=== PATIENT | female | born 1980 | race Caucasian/White ===

== ENCOUNTER 2018-12-23 12:35 | Emergency (ER) | payer OTHER ==
[~2018-12-23] VITALS: Ht 160 cm; Wt 77.1 kg
[2018-12-23] MEDS ORDERED: NACL 0.9% 1,000 ML IV ONE (12:48)
[2018-12-23 13:15] VITALS: BP_SYST 133
[2018-12-23 14:03] LABS: CALCIUM 8.8 mg/dL (8.4-11.0); CREATININE 0.82 mg/dL (0.55-1.30); POTASSIUM 3.4 mmol/L (3.5-5.1)
[2018-12-23 14:05] LABS: HEMATOCRIT 41.4 % (36-48); HEMOGLOBIN 13.3 g/dL (12.0-16.0); MEAN CORPUSCULAR HEMOGLOBIN 26 pg (27-31); MEAN CORPUSCULAR HGB CONC 32 % (32-36); MEAN CORPUSCULAR VOLUME 81 fL (79.0-98.0); RED BLOOD CELL COUNT(AUTO) 5.16 MIL/uL (4.2-6.2); RED CELL DISTRIBUTION WIDTH 15.5 % (9.0-15.0); WHITE BLOOD COUNT (AUTO) 8.2 K/uL (4.8-10.8)
[2018-12-23 14:06] LABS: BASOPHILS % (AUTO) 0.5 % (0.0-2.0); EOSINOPHILS # (AUTO) 0.2 K/uL (0.0-0.4); EOSINOPHILS % (AUTO) 2.5 % (0.0-4.0); LYMPHOCYTES # (AUTO) 0.9 K/uL (1.0-5.5); LYMPHOCYTES % (AUTO) 11.2 % (20.5-51.5); MONOCYTES # (AUTO) 0.7 K/uL (0.0-1.0); NEUTROPHILS # (AUTO) 6.3 K/uL (1.8-7.7); NEUTROPHILS % (AUTO) 77.8 % (40.0-70.0); PLATELET COUNT (AUTO) 358 K/uL (130-430)
[2018-12-23 14:09] LABS: ALBUMIN 3.3 g/dL (3.4-4.8); TOTAL BILIRUBIN 0.2 mg/dL (0.0-1.0)
[2018-12-23] MEDS ORDERED: KETOROLAC TROMETHAMINE 30 MG VIAL IVP ONE (14:15)
[2018-12-23] MEDS ORDERED: DIPHENHYDRAMINE INJ 50 MG/ML VIAL IVP ONE (14:15)
[2018-12-23 14:24] LABS: BILIRUBIN,URINE NEGATIVE (NEGATIVE); BLOOD, URINE 1+ (NEGATIVE); CLARITY/URINE SL HAZY (CLEAR); COLOR,URINE YELLOW (YELLOW); GLUCOSE,URINE NEGATIVE (NEGATIVE); KETONES,URINE NEGATIVE (NEGATIVE); LEUKOCYTE ESTERASE ,URINE 1+ (NEGATIVE); NITRITE, URINE NEGATIVE (NEGATIVE); PROTEIN URINE NEGATIVE (NEGATIVE); UROBILINOGEN,URINE 0.2 (0.2-1.0)
[2018-12-23 14:50] LABS: BACTERIA,URINE FEW /HPF (None Seen)
[2018-12-23 15:20] VITALS: BP_SYST 138
== END 2018-12-23 15:20 | disposition home or self-care (01) ==
LOC: SED 12:35
DX: J11.1 Influenza due to unidentified influenza virus with other respiratory manifestations (principal); R05 Cough; N39.0 Urinary tract infection, site not specified; M79.10 Myalgia, unspecified site; R03.0 Elevated blood-pressure reading, without diagnosis of hypertension; Z88.8 Allergy status to other drugs, medicaments and biological substances
CPT/HCPCS: 36415; 80053; 81000; 83690; 85025; 86710; 87086; 96374; 96375; 99283; J1200; J1885; J7030

== ENCOUNTER 2020-08-06 14:32 | Emergency (ER) | payer OTHER ==
[~2020-08-06] VITALS: Ht 160 cm; Wt 77.1 kg
[2020-08-06 14:50] VITALS: BP_SYST 156
[2020-08-06 16:31] LABS: BASOPHILS # (AUTO) 0.1 K/uL (0.0-0.2); BASOPHILS % (AUTO) 0.5 % (0.0-2.0); EOSINOPHILS # (AUTO) 0.2 K/uL (0.0-0.4); EOSINOPHILS % (AUTO) 0.9 % (0.0-4.0); HEMOGLOBIN 13.1 g/dL (12.0-16.0); LYMPHOCYTES % (AUTO) 17.5 % (20.5-51.5); MEAN CORPUSCULAR HEMOGLOBIN 26 pg (27-31); MEAN CORPUSCULAR HGB CONC 32 % (32-36); MEAN CORPUSCULAR VOLUME 82 fL (79.0-98.0); MONOCYTES # (AUTO) 0.7 K/uL (0.0-1.0); MONOCYTES % (AUTO) 4.2 % (1.7-9.3); NEUTROPHILS # (AUTO) 13.3 K/uL (1.8-7.7); NEUTROPHILS % (AUTO) 76.9 % (40.0-70.0); PLATELET COUNT (AUTO) 350 K/uL (130-430); RED BLOOD CELL COUNT(AUTO) 4.98 MIL/uL (4.2-6.2); WHITE BLOOD COUNT (AUTO) 17.2 K/uL (4.8-10.8)
[2020-08-06 16:50] LABS: CALCIUM 8.6 mg/dL (8.4-11.0); CREATININE 0.73 mg/dL (0.55-1.30); POTASSIUM 4.5 mmol/L (3.5-5.1)
[2020-08-06 16:56] LABS: TOTAL BILIRUBIN 0.5 mg/dL (0.0-1.0)
[2020-08-06] MEDS ORDERED: MORPHINE 4 MG/ML INJ. SYRINGE IVP ONE (17:00)
[2020-08-06] MEDS ORDERED: ONDANSETRON HCL 4 MG/2 ML VIAL IVP ONE (17:00)
[2020-08-06 17:21] LABS: ALBUMIN 3.9 g/dL (3.4-4.8)
[2020-08-06] MEDS ORDERED: [UNRECOGNIZED DRUG - CODE] PO (18:14)
[2020-08-06 20:26] VITALS: BP_SYST 126
== END 2020-08-06 20:26 | disposition home or self-care (01) ==
LOC: SED 14:32
DX: O20.9 Hemorrhage in early pregnancy, unspecified (principal); Z3A.01 Less than 8 weeks gestation of pregnancy; Z90.49 Acquired absence of other specified parts of digestive tract; Z20.828 Contact with and (suspected) exposure to other viral communicable diseases
CPT/HCPCS: 36415; 76830; 76857; 80053; 81002; 81025; 85025; 86886; 86900; 86901; 87426; 96374; 96375; 99284; J2270; J2405; 76856-TC

== ENCOUNTER 2020-08-13 06:57 | Inpatient (IN) | payer OTHER ==
[~2020-08-13] VITALS: Ht 160 cm; Wt 72.6 kg
[~2020-08-13 06:57] MED LIST: [UNRECOGNIZED DRUG - CODE] PO
[2020-08-13 08:02] LABS: HCG,QUAL RESULT NEGATIVE (NEGATIVE)
[2020-08-13] MEDS ORDERED: CEFAZOLIN SOD 2 GM in D5W 50 ML IV ONE (08:15)
[2020-08-13] MEDS ORDERED: NS 1000 ML IV.SOLN IV ONE (11:02)
[2020-08-13] MEDS ORDERED: SUGAMMADEX SODIUM 200 MG/2 ML VIAL IV ONE (11:02)
[2020-08-13] MEDS ORDERED: WATER FOR IRRIGATION,STERILE 1,000 ML IRRIG.SOLN IR ONE (11:02)
[2020-08-13] MEDS ORDERED: NS IRRIG SOLN 1000 ML IR ONE (11:02)
[2020-08-13] MEDS ORDERED: fentaNYL CITRATE/PF 100 MCG/2 ML AMP IVP ONE (11:02)
[2020-08-13] MEDS ORDERED: HYDROmorphone 2 MG/ML VIAL IVP ONE (11:02)
[2020-08-13] MEDS ORDERED: ONDANSETRON HCL 4 MG/2 ML VIAL IVP ONE (11:02)
[2020-08-13] MEDS ORDERED: LABETALOL 100 MG/ 20ML VIAL IVP ONE (11:02)
[2020-08-13] MEDS ORDERED: PROPOFOL 200MG/ 20ML VIAL (DIPRIVAN) IV ONE (11:02)
[2020-08-13] MEDS ORDERED: ROCURONIUM BROMIDE 10 MG/ML (ZEMURON) IV ONE (11:02)
[2020-08-13] MEDS ORDERED: LR 1,000 ML IV.SOLN IV ONE (11:02)
[2020-08-13] MEDS ORDERED: DEXAMETHASONE SOD PHOSPHATE 4 MG/ML VIAL IVP ONE (11:02)
[2020-08-13] MEDS ORDERED: KETOROLAC TROMETHAMINE 30 MG VIAL IVP ONE (11:02)
[2020-08-13] MEDS ORDERED: SUCCINYLCHOLINE CHLORIDE 20 MG/ML(QUELICIN) IVP ONE (11:02)
[2020-08-13] MEDS ORDERED: OXYCODONE/ACETAMINOPHEN 5-325 TABLET PO PRN (13:00)
[2020-08-13] MEDS ORDERED: HYDROcodone/ACETAMIN 5-325 MG TAB (NORCO/ VICODIN) PO PRN (13:00)
[2020-08-13] MEDS ORDERED: NALOXONE HCL 0.4 MG/ML AMP (NARCAN) IVP PRN ×3 (13:00→13:30)
[2020-08-13] MEDS: HYDROmorphone 1 MG INJ. 1 MG/ML AMPUL IVP PRN ×4 (13:28→14:10)
[2020-08-13] MEDS ORDERED: ONDANSETRON HCL 4 MG/2 ML VIAL IVP PRN (13:30)
[2020-08-13] MEDS ORDERED: METOCLOPRAMIDE HCL 10 MG/2 ML VIAL IVP PRN (13:30)
[2020-08-13] MEDS ORDERED: HYDROmorphone 1 MG INJ. 1 MG/ML AMPUL ONE ×2 (13:47→14:11)
[2020-08-13] MEDS ORDERED: ONDANSETRON HCL 4 MG/2 ML VIAL ONE (14:16)
[2020-08-13] MEDS: OXYCODONE/ACETAMINOPHEN 5-325 TABLET PO PRN (15:03)
[2020-08-13 16:00] VITALS: BP_SYST 124
[2020-08-13] MEDS: DIPHENHYDRAMINE INJ 50 MG/ML VIAL IVP PRN ×2 (16:29→20:23)
[2020-08-13] MEDS: KETOROLAC TROMETHAMINE 30 MG VIAL IVP SCH ×2 (18:01→23:32)
[2020-08-13 20:00] VITALS: BP_SYST 115
[2020-08-13] MEDS ORDERED: HYDROmorphone 2 MG/ML VIAL IVP PRN (20:00)
[2020-08-13] MEDS: ONDANSETRON HCL 4 MG/2 ML VIAL IVP PRN (20:23)
[2020-08-14 00:53] VITALS: BP_SYST 109
[2020-08-14] MEDS: ONDANSETRON HCL 4 MG/2 ML VIAL IVP PRN ×2 (01:53→11:11)
[2020-08-14] MEDS: MEPERIDINE HCL/PF 100 MG/ML AMP IM PRN ×4 (01:54→21:10)
[2020-08-14] MEDS: KETOROLAC TROMETHAMINE 30 MG VIAL IVP SCH ×3 (06:37→18:02)
[2020-08-14 08:00] VITALS: BP_SYST 122
[2020-08-14 11:49] VITALS: BP_SYST 120
[2020-08-14 14:53] VITALS: BP_SYST 122
[2020-08-14 16:00] VITALS: BP_SYST 132
[2020-08-14 20:00] VITALS: BP_SYST 128
[2020-08-14] MEDS: DIPHENHYDRAMINE INJ 50 MG/ML VIAL IVP PRN (22:16)
[2020-08-15 00:31] VITALS: BP_SYST 127
[2020-08-15] MEDS: OXYCODONE/ACETAMINOPHEN 5-325 TABLET PO PRN ×2 (03:38→09:06)
[2020-08-15] MEDS: KETOROLAC TROMETHAMINE 30 MG VIAL IVP SCH ×2 (05:48)
[2020-08-15 12:21] VITALS: BP_SYST 137
[2020-08-15 15:22] VITALS: BP_SYST 137
[2020-08-15 16:22] VITALS: BP_SYST 131
== END 2020-08-15 16:30 | disposition home or self-care (01) | DRG 743 ==
LOC: SMU 06:57 → EDSTATUS 08:30 → SMU 13:12
PROVIDERS: ADMIT Specialist; ATTEND Specialist
PROC: 0UT74ZZ Resection of Bilateral Fallopian Tubes, Percutaneous Endoscopic Approach (ICD-10-PCS; 2020-08-13)
PROC: 3E0T3BZ Introduction of Anesthetic Agent into Peripheral Nerves and Plexi, Percutaneous Approach (ICD-10-PCS; 2020-08-13)
PROC: 0UT94ZL Resection of Uterus, Supracervical, Percutaneous Endoscopic Approach (ICD-10-PCS; principal; 2020-08-13 11:02)
DX: N80.9 Endometriosis, unspecified (principal); N93.8 Other specified abnormal uterine and vaginal bleeding; M79.7 Fibromyalgia; N73.6 Female pelvic peritoneal adhesions (postinfective); N80.0 Endometriosis of uterus; Z90.710 Acquired absence of both cervix and uterus; G89.18 Other acute postprocedural pain
CPT/HCPCS: 84703; 87081; 88307; C1727; C9399; E0190; J0330; J0690; J1100; J1170; J1200; J1885; J2175; J2405; J2704; J2765; J3010; J3490; J7030; J7060; J7120

== ENCOUNTER 2024-05-16 06:08 | Inpatient (IN) | payer OTHER ==
[~2024-05-16] VITALS: Ht 160 cm; Wt 72.6 kg
[~2024-05-16 06:08] MED LIST changes: +AMOX-423 PO; +CYCL10TA24 PO; +HYDR-3927 PO; +KETO10TA2 PO; +METO-290 PO; -[UNRECOGNIZED DRUG - CODE] PO
[2024-05-16] MEDS ORDERED: MIDAZOLAM HCL 2 MG/2 ML VIAL (VERSED) ONE (08:05)
[2024-05-16] MEDS ORDERED: GLYCOPYRROLATE 0.2 MG/ML VIAL ONE (08:05)
[2024-05-16] MEDS ORDERED: PHENYLEPHRINE HCL 10 MG/ML VIAL (NEOSYNEPHRINE) ONE (08:05)
[2024-05-16] MEDS ORDERED: ONDANSETRON HCL 4 MG/2 ML VIAL ONE (08:05)
[2024-05-16] MEDS ORDERED: ROCURONIUM BROMIDE 10 MG/ML (ZEMURON) ONE (08:05)
[2024-05-16] MEDS ORDERED: DEXTROSE 50% JECT 50 ML DISP.SYRIN ONE (08:05)
[2024-05-16] MEDS ORDERED: LR 1,000 ML IV.SOLN IV ONE (08:05)
[2024-05-16] MEDS ORDERED: ePHEDrine sulfate 50 MG/ML VIAL ONE (08:05)
[2024-05-16] MEDS ORDERED: CLINDAMYCIN 2% VAGINAL CREAM VG ONE (08:05)
[2024-05-16] MEDS ORDERED: fentaNYL CITRATE/PF 100 MCG/2 ML AMP ONE (08:05)
[2024-05-16] MEDS ORDERED: MORPHINE SULFATE 10MG/10ML PF AMP ONE (08:05)
[2024-05-16] MEDS ORDERED: PROPOFOL 200MG/ 20ML VIAL (DIPRIVAN) IV ONE (08:05)
[2024-05-16] MEDS ORDERED: SEVOFLURANE 15 MIN GAS INH ONE (08:05)
[2024-05-16] MEDS ORDERED: FUROSEMIDE 40 MG/4 ML VIAL ONE (08:05)
[2024-05-16] MEDS ORDERED: LIDOCAINE/EPI 1% 1:100000 20 ML VIAL ONE (08:05)
[2024-05-16] MEDS ORDERED: METOCLOPRAMIDE HCL 10 MG/2 ML VIAL ONE (08:05)
[2024-05-16] MEDS ORDERED: KETOROLAC TROMETHAMINE 60 MG/2 ML VIAL IM PRN (09:15)
[2024-05-16] MEDS ORDERED: NALOXONE HCL 0.4 MG/ML AMP (NARCAN) IVP PRN (09:15)
[2024-05-16] MEDS: ONDANSETRON HCL 4 MG/2 ML VIAL ONE (12:39)
[2024-05-16] MEDS: DEXAMETHASONE SOD PHOSPHATE 4 MG/ML VIAL ONE (12:55)
[2024-05-16] MEDS: ALBUMIN HUMAN 5% 250 ML IV ONE ×2 (14:04→14:15)
[2024-05-16 14:57] LABS: HEMATOCRIT 25.1 % (36-48); HEMOGLOBIN 7.9 g/dL (12.0-16.0)
[2024-05-16 17:20] VITALS: BP_SYST 104; PULSE 110; RESP 16; TEMP 97.3; O2SAT 96
[2024-05-16] MEDS: CEFAZOLIN SOD 2 GM in D5W 50 ML IV ONE (19:00)
[2024-05-16] MEDS: ACETAMINOPHEN I.V. 1000 MG 100 ML IV ONE (19:00)
[2024-05-16] MEDS: KETOROLAC TROMETHAMINE 30 MG VIAL ONE (19:00)
[2024-05-16] MEDS: ONDANSETRON HCL 4 MG/2 ML VIAL IVP PRN (19:07)
[2024-05-16 20:40] VITALS: BP_SYST 99; PULSE 107; RESP 18; TEMP 98.6; O2SAT 96
[2024-05-16] MEDS: DIPHENHYDRAMINE INJ 50 MG/ML VIAL IM PRN (21:14)
[2024-05-16] MEDS ORDERED: HYDROcodone/ACETAMIN 5-325 MG TAB (NORCO/ VICODIN) PO PRN (22:00)
[2024-05-16] MEDS: SIMETHICONE 80 MG TAB.CHEW PO SCH (22:19)
[2024-05-16] MEDS: METOCLOPRAMIDE HCL 10 MG/2 ML VIAL IVP PRN (22:26)
[2024-05-16] MEDS: HYDROmorphone 1 MG/ML INJ. CARTRIDGE IVP PRN (22:28)
[2024-05-16] MEDS: D5LR 1,000 ML IV SCH (22:47)
[2024-05-16] MEDS: CEFAZOLIN 1 GM IVPB PREMIX 100 ML IV ONE (22:50)
[2024-05-16] MEDS: ceFAZolin SODIUM 1 GM in D5W 50 ML IV SCH (22:53)
[2024-05-17] VITALS: BP_SYST 114; PULSE 112; RESP 18; TEMP 98.3; O2SAT 96
[2024-05-17 01:38] LABS: BASOPHILS # (AUTO) 0.1 K/uL (0.0-0.2); BASOPHILS % (AUTO) 0.3 % (0.0-2.0); EOSINOPHILS % (AUTO) 0.1 % (0.0-4.0); HEMOGLOBIN 10.2 g/dL (12.0-16.0); LYMPHOCYTES # (AUTO) 1.7 K/uL (1.0-5.5); LYMPHOCYTES % (AUTO) 7.9 % (20.5-51.5); MEAN CORPUSCULAR HEMOGLOBIN 28 pg (27-31); MEAN CORPUSCULAR HGB CONC 34 % (32-36); MEAN CORPUSCULAR VOLUME 83 fL (79.0-98.0); MONOCYTES % (AUTO) 4.5 % (1.7-9.3); NEUTROPHILS # (AUTO) 18.5 K/uL (1.8-7.7); NEUTROPHILS % (AUTO) 87.2 % (40.0-70.0); PLATELET COUNT (AUTO) 176 K/uL (130-430); RED BLOOD CELL COUNT(AUTO) 3.62 MIL/uL (4.2-6.2); RED CELL DISTRIBUTION WIDTH 15.9 % (9.0-15.0); WHITE BLOOD COUNT (AUTO) 21.2 K/uL (4.8-10.8)
[2024-05-17 02:48] LABS: PROTHROMBIN TIME 10.5 SECS (9.5-12.5)
[2024-05-17 08:00] VITALS: BP_SYST 118; PULSE 99; RESP 18; TEMP 98; O2SAT 100
[2024-05-17 08:05] LABS: BASOPHILS % (AUTO) 0.1 % (0.0-2.0); EOSINOPHILS % (AUTO) 0.2 % (0.0-4.0); HEMATOCRIT 30.4 % (36-48); HEMOGLOBIN 9.8 g/dL (12.0-16.0); LYMPHOCYTES # (AUTO) 3.2 K/uL (1.0-5.5); LYMPHOCYTES % (AUTO) 15.6 % (20.5-51.5); MEAN CORPUSCULAR HEMOGLOBIN 27 pg (27-31); MEAN CORPUSCULAR HGB CONC 32 % (32-36); MEAN CORPUSCULAR VOLUME 85 fL (79.0-98.0); MONOCYTES # (AUTO) 1.3 K/uL (0.0-1.0); MONOCYTES % (AUTO) 6.4 % (1.7-9.3); NEUTROPHILS # (AUTO) 15.9 K/uL (1.8-7.7); NEUTROPHILS % (AUTO) 77.7 % (40.0-70.0); PLATELET COUNT (AUTO) 245 K/uL (130-430); WHITE BLOOD COUNT (AUTO) 20.5 K/uL (4.8-10.8)
[2024-05-17 09:31] VITALS: O2SAT 97
[2024-05-17] MEDS: DIPHENHYDRAMINE INJ 50 MG/ML VIAL IVP PRN (11:13)
[2024-05-17 12:33] VITALS: BP_SYST 118; PULSE 100; RESP 18; TEMP 98.3; O2SAT 100
[2024-05-17 17:08] VITALS: BP_SYST 125; PULSE 102; RESP 18; TEMP 98.1; O2SAT 96
[2024-05-17 19:14] LABS: BASOPHILS # (AUTO) 0.1 K/uL (0.0-0.2); BASOPHILS % (AUTO) 0.4 % (0.0-2.0); EOSINOPHILS # (AUTO) 0.1 K/uL (0.0-0.4); EOSINOPHILS % (AUTO) 0.5 % (0.0-4.0); HEMATOCRIT 29.7 % (36-48); HEMOGLOBIN 9.8 g/dL (12.0-16.0); LYMPHOCYTES # (AUTO) 5.8 K/uL (1.0-5.5); LYMPHOCYTES % (AUTO) 27.7 % (20.5-51.5); MEAN CORPUSCULAR HEMOGLOBIN 28 pg (27-31); MEAN CORPUSCULAR HGB CONC 33 % (32-36); MEAN CORPUSCULAR VOLUME 85 fL (79.0-98.0); MONOCYTES # (AUTO) 1.4 K/uL (0.0-1.0); MONOCYTES % (AUTO) 6.5 % (1.7-9.3); NEUTROPHILS # (AUTO) 13.6 K/uL (1.8-7.7); NEUTROPHILS % (AUTO) 64.9 % (40.0-70.0); PLATELET COUNT (AUTO) 231 K/uL (130-430); RED BLOOD CELL COUNT(AUTO) 3.48 MIL/uL (4.2-6.2); RED CELL DISTRIBUTION WIDTH 15.9 % (9.0-15.0); WHITE BLOOD COUNT (AUTO) 20.9 K/uL (4.8-10.8)
[2024-05-17 20:00] VITALS: BP_SYST 145; PULSE 104; RESP 18; TEMP 98.3; O2SAT 96
[2024-05-17 23:46] LABS: PROTHROMBIN TIME 10.3 SECS (9.5-12.5)
[2024-05-18] VITALS: BP_SYST 142; PULSE 108; RESP 18; TEMP 98.3; O2SAT 94
[2024-05-18 08:00] VITALS: BP_SYST 138; PULSE 110; RESP 16; TEMP 98.2; O2SAT 96; O2SAT 98
[2024-05-18] MEDS ORDERED: HYDROcodone/ACETAMIN 10-325 MG TAB PO PRN (12:00)
[2024-05-18] MEDS ORDERED: NALOXONE HCL 0.4 MG/ML AMP (NARCAN) IVP PRN (12:00)
[2024-05-18] MEDS ORDERED: KETOROLAC TROMETHAMINE 10 MG TABLET (TORADOL) PO SCH (12:00)
[2024-05-18 12:12] VITALS: BP_SYST 136; PULSE 102; RESP 18; TEMP 98.7; O2SAT 95
[2024-05-18] MEDS ORDERED: FIORCET PO PRN (12:45)
[2024-05-18] MEDS ORDERED: METOCLOPRAMIDE HCL 10 MG TABLET PO SCH (13:00)
[2024-05-18] MEDS: ACETAMINOPHEN 325 MG TABLET PO PRN (13:12)
[2024-05-18] MEDS: ONDANSETRON HCL 4 MG/2 ML VIAL IVP PRN (13:12)
[2024-05-18] MEDS: NAPROXEN 250 MG TABLET PO PRN (13:13)
[2024-05-18] MEDS: PIPERACILLIN/TAZO 3.375 GM in D5W 50 ML IV SCH (14:13)
[2024-05-18 16:10] VITALS: BP_SYST 144; PULSE 105; RESP 17; TEMP 98.9; O2SAT 94
[2024-05-18 19:35] LABS: BASOPHILS # (AUTO) 0.2 K/uL (0.0-0.2); BASOPHILS % (AUTO) 0.9 % (0.0-2.0); EOSINOPHILS # (AUTO) 0.3 K/uL (0.0-0.4); EOSINOPHILS % (AUTO) 1.5 % (0.0-4.0); HEMATOCRIT 29.9 % (36-48); HEMOGLOBIN 9.9 g/dL (12.0-16.0); LYMPHOCYTES # (AUTO) 4.6 K/uL (1.0-5.5); LYMPHOCYTES % (AUTO) 24.3 % (20.5-51.5); MEAN CORPUSCULAR HEMOGLOBIN 28 pg (27-31); MEAN CORPUSCULAR HGB CONC 33 % (32-36); MEAN CORPUSCULAR VOLUME 84 fL (79.0-98.0); MONOCYTES # (AUTO) 0.8 K/uL (0.0-1.0); MONOCYTES % (AUTO) 4.4 % (1.7-9.3); NEUTROPHILS # (AUTO) 13.2 K/uL (1.8-7.7); NEUTROPHILS % (AUTO) 68.9 % (40.0-70.0); PLATELET COUNT (AUTO) 253 K/uL (130-430); RED BLOOD CELL COUNT(AUTO) 3.55 MIL/uL (4.2-6.2); RED CELL DISTRIBUTION WIDTH 15.9 % (9.0-15.0); WHITE BLOOD COUNT (AUTO) 19.1 K/uL (4.8-10.8)
[2024-05-18 20:15] VITALS: BP_SYST 147; PULSE 107; RESP 27; TEMP 98.8; O2SAT 96
[2024-05-18 21:00] VITALS: O2SAT 97
[2024-05-18] MEDS ORDERED: CYCLOBENZAPRINE HCL 10 MG TABLET (FLEXERIL) PO SCH (21:00)
[2024-05-19 00:15] VITALS: BP_SYST 139; PULSE 103; RESP 20; TEMP 98.4; O2SAT 98
[2024-05-19] MEDS: OXYCODONE/ACETAMINOPHEN *10*mg/325 mg TABLET PO PRN (01:58)
[2024-05-19 10:30] VITALS: O2SAT 100
[2024-05-19 13:02] VITALS: BP_SYST 138; PULSE 76; RESP 16; TEMP 98.6; O2SAT 98
[2024-05-19 13:41] VITALS: BP_SYST 138; PULSE 76; RESP 16; TEMP 98.6; O2SAT 98
[2024-05-20] MEDS ORDERED: CLEVAG VG (12:29)
[2024-05-20] MEDS ORDERED: AMOX-423 PO (12:31)
[2024-05-21 07:06] LABS: RA LATEX TURBID <10.0 IU/mL (<14.0)
[2024-05-22 02:06] LABS: EBV AB VCA, IgG 37.9 U/mL (0.0-17.9); EBV AB VCA, IgM <36.0 U/mL (0.0-35.9)
== END 2024-05-19 14:00 | disposition home or self-care (01) | DRG 742 ==
LOC: SMU 06:08 → SDS 06:08 → STU 23:03 → SDS 23:12 → STU 23:18
PROVIDERS: ADMIT Specialist; ATTEND Specialist
PROC: 02H633Z Insertion of Infusion Device into Right Atrium, Percutaneous Approach (ICD-10-PCS; 2024-05-16)
PROC: 0DNW4ZZ Release Peritoneum, Percutaneous Endoscopic Approach (ICD-10-PCS; 2024-05-16)
PROC: 0TJB8ZZ Inspection of Bladder, Via Natural or Artificial Opening Endoscopic (ICD-10-PCS; 2024-05-16)
PROC: 30233N1 Transfusion of Nonautologous Red Blood Cells into Peripheral Vein, Percutaneous Approach (ICD-10-PCS; principal; 2024-05-16 08:15)
PROC: 0UT04ZZ Resection of Right Ovary, Percutaneous Endoscopic Approach (ICD-10-PCS; 2024-05-17)
PROC: 0UTC4ZZ Resection of Cervix, Percutaneous Endoscopic Approach (ICD-10-PCS; 2024-05-17)
PROC: 0TQB4ZZ Repair Bladder, Percutaneous Endoscopic Approach (ICD-10-PCS; 2024-05-17)
PROC: 8E0W4CZ Robotic Assisted Procedure of Trunk Region, Percutaneous Endoscopic Approach (ICD-10-PCS; 2024-05-17)
DX: N80.9 Endometriosis, unspecified (principal); D68.9 Coagulation defect, unspecified; M79.7 Fibromyalgia; N93.9 Abnormal uterine and vaginal bleeding, unspecified; D72.829 Elevated white blood cell count, unspecified; I10 Essential (primary) hypertension; D64.9 Anemia, unspecified; N73.6 Female pelvic peritoneal adhesions (postinfective); Z79.899 Other long term (current) drug therapy; Z98.891 History of uterine scar from previous surgery; Z78.0 Asymptomatic menopausal state; Z88.8 Allergy status to other drugs, medicaments and biological substances; Z90.711 Acquired absence of uterus with remaining cervical stump
CPT/HCPCS: 36415; 70490; 71045; 72192-TC; 85018; 85025; 85379; 85384; 85610; 85730; 86431; 86665; 86886; 86900; 86901; 86920; 87081; 88305; 88307; C1727; C1751; E0190; G0378; J0131; J0690; J1100; J1170; J1200; J1885; J1940; J2250; J2274; J2405; J2543; J2704; J2765; J3010; J3490; J7060; J7120; P9021; P9041